=== PATIENT | female | born 1950 | race Caucasian/White ===

== ENCOUNTER 2019-07-28 00:25 | Emergency (ER) | payer MEDICARE, OTHER ==
[~2019-07-28] VITALS: Ht 152.4 cm; Wt 70.3 kg
[2019-07-28 00:55] VITALS: BP 143/91
[2019-07-28 01:11] LABS: BASOPHILS % (AUTO) 0.4 % (0.0-2.0); EOSINOPHILS % (AUTO) 2.4 % (0.0-6.0); HEMATOCRIT 41 % (33-45); HEMOGLOBIN 13.9 g/dL (11.5-14.8); LYMPHOCYTES # (AUTO) 2.8 /CMM (0.8-4.8); LYMPHOCYTES % (AUTO) 31.2 % (20.0-44.0); MEAN CORPUSCULAR HGB CONC 34 g/dl (31.0-36.0); MEAN CORPUSCULAR VOLUME 102 fL (82-100); MONOCYTES % (AUTO) 11.4 % (2.0-12.0); NEUTROPHILS # (AUTO) 4.9 /CMM (1.8-8.9); NEUTROPHILS % (AUTO) 54.6 % (43.0-81.0); PLATELET COUNT (AUTO) 152 /CMM (150-450); RED BLOOD CELL COUNT(AUTO) 4.04 MIL/uL (4.0-5.2)
[2019-07-28 01:24] LABS: CALCIUM, SERUM 9.4 mg/dL (8.5-10.1); CREATININE 0.9 mg/dL (0.6-1.3); POTASSIUM 4.3 mmol/L (3.5-5.1)
[2019-07-28] MEDS ORDERED: IOHEXOL-300 100 ML VIAL IV ONE (01:28)
[2019-07-28] MEDS ORDERED: CT SWABBABLE VALVE TRANS SET 1 EA INFUS.SET MC ONE (01:28)
[2019-07-28] MEDS ORDERED: IV NS 0.9% 250 ML IV ONE (01:29)
--- NOTE | 2019-07-28 02:44 | NUR ---
Patient discharged to home in stable condition. Written and verbal after care instructions given. Patient verbalizes understanding of instruction.
== END 2019-07-28 02:44 | disposition home or self-care (01) ==
LOC: ER 00:25
DX: R59.1 Generalized enlarged lymph nodes (principal); Z98.890 Other specified postprocedural states
CPT/HCPCS: 36415; 70491; 80048; 85025; 99285; J7050; Q9967